=== PATIENT | female | born 1985 | race Caucasian/White ===

== ENCOUNTER 2017-08-11 16:44 | Emergency (ER) | payer OTHER ==
--- NOTE | 2017-08-11 17:41 | RAD ---
TWO VIEWS CHEST: 08/11/17 HISTORY: Pain. COMPARISON: None. FINDINGS: Normal cardiac silhouette. The pulmonary vessels and hilum are normal. Costophrenic angles are clear. No consolidation or mass. No pneumothorax or osseous abnormalities. IMPRESSION: No acute cardiopulmonary process. POS: H
--- NOTE | 2017-08-29 16:33 | EKG ---
Test Reason : Blood Pressure : / mmHG Vent. Rate : 070 BPM Atrial Rate : 070 BPM P-R Int : 110 ms QRS Dur : 088 ms QT Int : 372 ms P-R-T Axes : -14 061 047 degrees QTc Int : 401 ms Sinus rhythm with short [place] Otherwise normal ECG Confirmed by CHELSEA Mcwilliams, SARAH ([id number]), editor publications AMPARO GIRARD ([id number]) on 08/29/2017 4:33:05 PM Referred By: Confirmed By:SARAH TRAN M.D.
== END 2017-08-11 18:32 | disposition home or self-care (01) ==
LOC: ERS 16:44
DX: S16.1XXA Strain of muscle, fascia and tendon at neck level, initial encounter (principal); F41.9 Anxiety disorder, unspecified; F32.9 Major depressive disorder, single episode, unspecified; F17.210 Nicotine dependence, cigarettes, uncomplicated; X50.9XXA Other and unspecified overexertion or strenuous movements or postures, initial encounter
CPT/HCPCS: 71046; 93005

== ENCOUNTER 2021-04-14 22:28 | Emergency (ER) | payer SELFPAY ==
[2021-04-14] MEDS ORDERED: Xylocaine 1% w/ Epi 1:100K 10 ML VIAL ONE (23:33)
== END 2021-04-15 00:15 | disposition home or self-care (01) ==
LOC: ERS 22:28
DX: L02.416 Cutaneous abscess of left lower limb (principal); F17.210 Nicotine dependence, cigarettes, uncomplicated
CPT/HCPCS: 10060

== ENCOUNTER 2023-03-20 19:13 | Emergency (ER) | payer SELFPAY ==
[2023-03-20] MEDS ORDERED: Ketorolac Tromethamine 30 MG (1 mL) VIAL ONE (20:02)
[2023-03-20 20:22] LABS: Hematocrit 38.7 % (36.0-47.0); Hemoglobin 12.7 g/dL (12.0-16.0); Manual Diff?? YES; Mean Corpuscular HGB CONC 32.8 g/dL (32.0-36.0); Mean Corpuscular Hemoglobin 29.4 pg (27.0-31.0); Mean Corpuscular Volume 89.6 fl (78.0-98.0); Platelet Count 276 10x3/uL (130-400); RBC Distribution Width 12.7 % (11.5-14.5); Red Blood Cell (RBC) Count 4.32 mill/uL (4.20-5.40); White Blood Cell (WBC) Count 12.9 10x3/uL (4.8-10.8)
[2023-03-20 20:28] LABS: Delete Auto Diff?? YES
[2023-03-20 20:35] LABS: Bacteria/HPF None Seen HPF (None Seen); Bilirubin Negative (Negative); Blood, Urine 1+ (Negative); CAUTI Indications for Culture Pelvic or flank pain; Clarity Clear (Clear); Glucose, Urine (Dipstick) Normal (Negative); Ketone, Urine Negative (Negative); Leukocyte Negative Leu/uL (Negative); Nitrite Negative (Negative); Protein, Urine (Dipstick) 10 mg/dL (Neg-Trace); Specific Gravity, Urine 1.031 (1.002-1.036); Squamous Epithelial 0-3 HPF (0-3); Urobilinogen Normal mg/dL (Less than 2); WBC/HPF 0-3 HPF (0-3); pH, Urine 5.5 (5.0-9.0)
[2023-03-20 20:41] LABS: BHCG - Serum Negative (NEGATIVE); Pregs Control Background? CLEAR/WHITE (CLR/WHITE); Pregs Control Bar Appear? YES (CONTROL BAR)
[2023-03-20 20:42] LABS: Urine Culture Reflex No No
[2023-03-20 20:45] LABS: Anion Gap 14 mmol/L (10-20); BUN (Urea Nitrogen) 10 mg/dL (7.0-18.7); Calc. Creatinine Clearance 0 mL/min (70-130); Calcium 9.3 mg/dL (7.8-10.44); Carbon Dioxide 23 mmol/L (22-29); Chloride 105 mmol/L (98-107); Estimated GFR 114; Glucose 107 mg/dL (70-105); Potassium 3.6 mmol/L (3.5-5.1); Sodium 138 mmol/L (136-145)
[2023-03-20 20:48] LABS: CellaVision Operator ID lab.abc; Eosinophils 2 % (0-10); Large Platelets 2.9 % (0-5); Lymphocytes 26 % (21-51); Monocytes 2 % (0-10); Neutrophil 66 % (42-75); Platelet Adequacy Comment Platelets Normal; RBC Morphology Within Normal Limits; Reactive Lymphocytes 5 % (0-10); Smudge Cells 5.9 %; Total Cell Count 102
== END 2023-03-20 22:19 | disposition home or self-care (01) ==
LOC: ERS 19:13
DX: N83.202 Unspecified ovarian cyst, left side (principal); F17.290 Nicotine dependence, other tobacco product, uncomplicated
CPT/HCPCS: 76856; 80048; 81001; 84703; 85025; 96374; J1885